=== PATIENT | female | born 1960 | race Caucasian/White ===

== ENCOUNTER 2019-10-20 12:56 | Inpatient (IN) | payer BC, MEDICAID ==
[2019-10-20 14:14] LABS: HEMOGLOBIN A1C 8.5 % (4.8-5.6)
[2019-10-20 14:41] LABS: CHLORIDE,CL 101 mEq/L (98-106); SODIUM,NA 136 mEq/L (136-145)
[2019-10-20] MEDS: Sodium Chloride 0.9% 1,000 ML IV SCH (16:55)
[2019-10-20] MEDS: Pantoprazole 40 MG Vial IVPUSH SCH (17:45)
[2019-10-20] MEDS ORDERED: traZODone 50 MG Tab PO SCH (20:00)
[2019-10-20] MEDS ORDERED: LITHIUM CARBONATE 300 MG PO SCH (21:00)
[2019-10-20] MEDS ORDERED: Enoxaparin 30 MG/0.3 ML Syringe SUBCUT SCH (21:00)
[2019-10-20] MEDS ORDERED: Lithium Carbonate 300 MG Cap PO ONE (22:15)
[2019-10-21] MEDS: Sodium Chloride 0.9% 1,000 ML IV SCH ×2 (02:31→14:19)
[2019-10-21] MEDS: Pantoprazole 40 MG Vial IVPUSH SCH ×2 (05:25→19:36)
[2019-10-21] MEDS ORDERED: LEVOTHYROXINE 175 MCG PO SCH (08:00)
[2019-10-21] MEDS ORDERED: GLIPIZIDE 10 MG PO SCH (08:00)
[2019-10-21] MEDS ORDERED: OXCARBAZEPINE 600 MG PO SCH (08:00)
[2019-10-21] MEDS ORDERED: OLOPATADINE 0.1% EYEBOTH SCH (08:00)
[2019-10-21] MEDS ORDERED: Iopamidol 755 Mg/ML 200 ML Bottle IV ONE (09:41)
[2019-10-21] MEDS ORDERED: Barium Sulfate Oral Susp 450 ML Bottle PO ONE ×2 (09:41)
[2019-10-21] MEDS: cefTRIAXone 1 GM Vial IVPUSH SCH (09:46)
--- NOTE | 2019-10-21 11:02 | PN ---
DATE: 10/21/2019 S: Yeimy was admitted yesterday for unsteadiness on her feet. She was weak, not eating, appeared clinically dehydrated, and at the time had a large lymph node in her left neck. CT scan did not show any obvious pathology, but she was unable to tolerate intake, and so we ultimately put her in for some IV fluids and workup. Her lab work confirmed a slight anemia at 10.8, which was lower than she had been in the past and macrocytic. Her renal functions were elevated with a creatinine of 1.8. She is down to 1.3 since she has been getting IV fluids, and she does have known gout, and her uric acid level was 9.5. Her sed rate was 98 with a CRP of 2.1. Urinalysis is borderline, and culture is pending. Concerned about this firm adenopathy in her left neck combined with her abdominal pain, which has been going on for a few weeks. Once we got a creatinine down this morning, we do plan on scanning her neck, chest, and abdomen. Otherwise, she is without complaints. O: VITAL SIGNS: Have been stable. She has had no fevers. Blood pressure is fine. Sats in the mid 90s on room air. GENERAL: Today, she is pleasant and cooperative. HEENT: Grossly benign. NECK: Supple. LUNGS: The cervical adenopathy in the left submandibular area remains firm and minimally tender. Lungs sounds are clear. CARDIAC: Tones are regular. ABDOMEN: Obese. She has tinea under both breasts. No real abdominal pain to palpation. EXTREMITIES: No significant peripheral edema. ASSESSMENT: 1. WEAKNESS WITH DEHYDRATION, IMPROVED. 2. UNSTEADY GAIT, QUESTIONABLE ETIOLOGY. 3. FIRM LEFT-SIDED CERVICAL ADENOPATHY. 4. BIPOLAR DISORDER. 5. ACUTE KIDNEY INJURY, IMPROVED. 6. HYPOTHYROIDISM. P: The patient will have scans today of neck, chest, abdomen, and pelvis. We are going to start her on Rocephin and get a urine culture. Her IV fluids will be discontinued after her CT scan is accomplished as her creatinine is back to stable at 1.3, which is her baseline. Still waiting on her verified doses of thyroid replacement as her free T4 on admit was low. [place] and Trileptal levels pending as well. MJP/MODL /[id number]
[2019-10-21] MEDS ORDERED: LEVOTHYROXINE SODIUM 225 MCG PO SCH (12:00)
[2019-10-21] MEDS: Simvastatin 40 MG Tab **OWN MED PO SCH (13:54)
[2019-10-21] MEDS: OXCARBAZEPINE 600 MG PO SCH (13:54)
[2019-10-21] MEDS: GLIPIZIDE 10 MG PO SCH (13:55)
[2019-10-21] MEDS: LITHIUM CARBONATE 300 MG PO SCH ×2 (13:55→19:29)
[2019-10-21] MEDS: [UNRECOGNIZED DRUG - REMARK] NASBOTH SCH ×2 (13:56→19:28)
[2019-10-21] MEDS: Nystatin Crm 30 GM Tube TOP SCH ×2 (13:56→17:58)
[2019-10-21] MEDS: [UNRECOGNIZED DRUG - REMARK] NASBOTH SCH ×2 (14:22→14:23)
[2019-10-21] MEDS: PULMICORT FLEXHALER INH SCH (14:22)
[2019-10-21] MEDS ORDERED: Enoxaparin 40 MG/0.4 ML Syringe SUBCUT SCH (17:53)
[2019-10-21] MEDS: Nystatin Crm 30 GM Tube TOP PRN (19:28)
[2019-10-21] MEDS: Enoxaparin 40 MG/0.4 ML Syringe SUBCUT SCH (19:34)
[2019-10-21] MEDS ORDERED: Lithium Carbonate 300 MG Cap PO SCH (20:00)
[2019-10-21] MEDS ORDERED: traZODone 50 MG Tab **OWN MED PO SCH (20:00)
[2019-10-22] MEDS ORDERED: Levothyroxine 25 MCG TAB PO SCH (07:00)
[2019-10-22] MEDS ORDERED: Levothyroxine 200 MCG TAB PO SCH (07:00)
[2019-10-22] MEDS: OXCARBAZEPINE 600 MG PO SCH (08:27)
[2019-10-22] MEDS: GLIPIZIDE 10 MG PO SCH (08:28)
[2019-10-22] MEDS: IRBESARTAN 300 MG PO SCH (08:28)
[2019-10-22] MEDS: Simvastatin 40 MG Tab **OWN MED PO SCH (08:29)
[2019-10-22] MEDS: Pantoprazole 40 MG Vial IVPUSH SCH ×2 (08:29→19:30)
[2019-10-22] MEDS: cefTRIAXone 1 GM Vial IVPUSH SCH (08:29)
[2019-10-22] MEDS: [UNRECOGNIZED DRUG - REMARK] NASBOTH SCH ×2 (08:31→19:27)
--- NOTE | 2019-10-22 09:48 | PN ---
DATE: 10/22/2019 S: Yeimy has been clinically doing well. Preliminary urine culture is negative and we did suspect a contaminated specimen. Her lithium level did come back this morning and she is toxic at 2.6. We have been holding it and she is already showing improvement in mentation and walking. CT scans yesterday did not show any signs of lymphoma in the chest, abdomen, and pelvis. 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 O: GENERAL: Today, she is much more clear, answers questions appropriately. HEENT: Grossly benign. NECK: Supple. Parotid lesion unchanged. LUNGS: Clear. CARDIAC: Tones are regular. EXTREMITIES: She has no peripheral edema. NEUROLOGIC: She has much better facial expression and cognition regarding conversation. Staff note that she is ambulating better with a walker. ASSESSMENT: 1. LITHIUM TOXICITY. 2. BIPOLAR DISORDER. 3. PAROTID GLAND TUMOR. 4. HYPOTHYROIDISM. 5. TYPE 2 DIABETES. 6. MORBID OBESITY. P: We will transfer to [facility] acute hospital. She is still a day or two away from safely being home and we will continue to have PT work with her closely. DARI/RYAN /[id number]
[2019-10-22] MEDS ORDERED: Lithium Carbonate 300 MG Cap PO SCH (09:55)
[2019-10-22] MEDS: OXcarbazepine 300 MG Tab PO SCH (19:34)
[2019-10-22] MEDS: traZODone 50 MG Tab PO SCH (19:34)
[2019-10-22] MEDS: Enoxaparin 40 MG/0.4 ML Syringe SUBCUT SCH (19:35)
[2019-10-22] MEDS: Acetaminophen 325 MG Tab PO PRN (21:11)
[2019-10-22] MEDS: Nystatin Crm 30 GM Tube TOP PRN (21:12)
[2019-10-23] MEDS: Acetaminophen 325 MG Tab PO PRN (03:02)
[2019-10-23] MEDS: Levothyroxine 150 MCG Tab PO SCH (06:41)
[2019-10-23] MEDS: Levothyroxine 100 MCG Tab PO SCH (06:41)
[2019-10-23] MEDS: [UNRECOGNIZED DRUG - REMARK] NASBOTH SCH ×2 (07:33→19:29)
[2019-10-23] MEDS: glipiZIDE 5 MG Tab.ER PO SCH (07:34)
[2019-10-23] MEDS: IRBESARTAN 300 MG PO SCH (07:36)
[2019-10-23] MEDS: OXcarbazepine 300 MG Tab PO SCH ×2 (07:36→19:27)
[2019-10-23] MEDS: Pantoprazole 40 MG Vial IVPUSH SCH ×2 (07:36→19:29)
[2019-10-23] MEDS: cefTRIAXone 1 GM Vial IVPUSH SCH (08:18)
[2019-10-23] MEDS ORDERED: LITHIUM CARBONATE 300 MG PO SCH (10:45)
[2019-10-23] MEDS: LITHIUM CARBONATE 300 MG PO SCH (11:10)
--- NOTE | 2019-10-23 12:16 | PN ---
DATE: 10/23/2019 S: eYimy had a good day yesterday. She has been ambulating much better since she has had her lithium on hold. She also feels much more clear. She is vocalizing much better. Her level was 2.6; it was drawn randomly, however. Her blood pressures and vitals have otherwise been stable. She denies any new concerns. Her urinalysis shows contamination and no pathologic organisms. O: GENERAL: Today shows her to be pleasant and cooperative and in no distress. HEENT: Remains unchanged. The parotid tumor remains firm and nontender. NECK: Otherwise supple. LUNGS: Clear. CARDIAC: Tones are regular. ABDOMEN: Soft, obese, and nontender. EXTREMITIES: No peripheral edema. No cellulitis changes. NEUROLOGIC: She looks stable. ASSESSMENT: 1. LITHIUM TOXICITY WITH ASSOCIATED ATAXIA AND CONFUSION, IMPROVED. 2. BIPOLAR DISORDER. 3. PAROTID GLAND TUMOR. 4. HYPOTHYROIDISM. 5. TYPE 2 DIABETES. 6. MORBID OBESITY. P: The patient did run a few low-grade temperatures up to I believe 100.4 yesterday. Her lab work today looks fine. Her hemoglobin is down to 10. We will get B12, folate, and a peripheral smear on her. The patient clinically looks better and I suspect will be ready for home by tomorrow morning. We will start her back on a lower dose of lithium at 150 b.i.d. and I will get a level tomorrow morning prior to her dose, which should be optimal time for checking. She will need frequent monitoring of this as an outpatient until we achieve a steady state on her. Rocephin is stopped as her urine culture is negative. DARI/RYAN /[id number]
[2019-10-23] MEDS: Nystatin Crm 30 GM Tube TOP PRN ×2 (16:43→19:33)
[2019-10-23] MEDS: traZODone 50 MG Tab PO SCH (19:27)
[2019-10-23] MEDS: Enoxaparin 40 MG/0.4 ML Syringe SUBCUT SCH (19:29)
[2019-10-23] MEDS ORDERED: Simvastatin 40 MG Tab PO SCH (20:00)
[2019-10-24] MEDS: Levothyroxine 150 MCG Tab PO SCH (06:14)
[2019-10-24] MEDS: Levothyroxine 100 MCG Tab PO SCH (06:15)
[2019-10-24] MEDS: Nystatin Crm 30 GM Tube TOP PRN (07:32)
[2019-10-24] MEDS: [UNRECOGNIZED DRUG - REMARK] NASBOTH SCH (07:33)
[2019-10-24] MEDS: OXcarbazepine 300 MG Tab PO SCH (07:34)
[2019-10-24] MEDS: glipiZIDE 5 MG Tab.ER PO SCH (07:34)
[2019-10-24] MEDS: IRBESARTAN 300 MG PO SCH (07:35)
[2019-10-24] MEDS: Pantoprazole 40 MG Vial IVPUSH SCH (07:36)
[2019-10-24] MEDS: LITHIUM CARBONATE 300 MG PO SCH (08:05)
[2019-10-24 09:03] VITALS: BP 120/69; PULSE 70
--- NOTE | 2019-10-24 11:15 | DISCH ---
ADMISSION DIAGNOSES: 1. Unsteady gait. 2. Cervical adenopathy. 3. Abdominal pain. 4. Anemia. 5. Bipolar disorder. 6. Type 2 diabetes. 7. Elevated uric acid. 8. Hypertension. 9. Hypothyroidism. DISCHARGE DIAGNOSIS: 1. LITHIUM TOXICITY. 2. BIPOLAR DISORDER. 3. PAROTID GLAND TUMOR. 4. HYPOTHYROIDISM. 5. TYPE 2 DIABETES. 6. MORBID OBESITY. 7. MEDICATION NONCOMPLIANCE. HISTORY: The patient was seen in my office for weakness and unsteady gait. said over the last 2 weeks, she has just been a little bit more lethargic and having a hard time walking. She does take lithium and Trileptal for her bipolar disorder, which is managed by Psychiatry in [place]. She is unsure at that time of her last lithium level. Her evaluation showed her to have a very firm submandibular lymph node on her left side. She was ataxic and a little lethargic with some difficulty with word finding. We ultimately admitted her for evaluation to the hospital. HOSPITAL COURSE: The patient was admitted. Her lithium was held. Ultimately, level showed her to be toxic at 2.6. We have started her back on a lower dose from 300 b.i.d. to 300 once a day, and we will continue to monitor that and get a steady state as an outpatient. Because of her lymph node in her neck and the fact that she was having abdominal pain, we are concerned about lymphoma. CT of the neck, chest, abdomen, and pelvis confirmed a parotid gland tumor in her left face, but no other worrisome adenopathy. She will have ENT followup in the future. I did put her on IV Protonix because of her abdominal pain, but she has not really had any since admission. With the cessation of her lithium, her balance and walking have returned to normal. She is much more alert, oriented, and doing well. For the most part, she has had a nice steady improvement throughout her entire stay. She was hypothyroid on admission. Her dose has been increased, that will also be followed up as an outpatient. She has not been taking her allopurinol. Her uric acid level was 9.6. We are going to start her back on 200 mg of that a day and that will be followed as an outpatient. ENT referral will be managed through my office in the clinic. At this time, she will go home on a lower dose of lithium, a slightly higher dose of her levothyroxine as well as her allopurinol. The patient will have home health for medication monitoring and compliance, and we will see her back in my office in the next 3 or 4 days. COMPLICATIONS: During her stay were none. CONSULTATIONS: PT. PROCEDURES: CT of the neck, chest, abdomen, pelvis. DISPOSITION: Discharged home with home health cares. DARI/RYAN /[id number]
== END 2019-10-24 11:00 | disposition home health service (06) | DRG 58 ==
LOC: CC.FCMC 12:56 → CC.MS 12:56 → UNDOADMOB 14:57 → CC.MS 14:57 → OBSVTOIN 10-22 09:04
PROVIDERS: ADMIT Family Medicine; ATTEND Family Medicine
DX: R26.9 Unspecified abnormalities of gait and mobility (principal); E66.01 Morbid (severe) obesity due to excess calories; E03.9 Hypothyroidism, unspecified; N17.9 Acute kidney failure, unspecified; T43.595A Adverse effect of other antipsychotics and neuroleptics, initial encounter; D64.9 Anemia, unspecified; D49.0 Neoplasm of unspecified behavior of digestive system; E11.9 Type 2 diabetes mellitus without complications; E78.5 Hyperlipidemia, unspecified; I10 Essential (primary) hypertension; R59.0 Localized enlarged lymph nodes; E79.0 Hyperuricemia without signs of inflammatory arthritis and tophaceous disease; E86.0 Dehydration; Z91.14 Patient's other noncompliance with medication regimen; Z68.36 Body mass index [BMI] 36.0-36.9, adult; Z79.899 Other long term (current) drug therapy
CPT/HCPCS: 36415; 70450; 70491; 71260; 74177; 80048; 80053; 80178; 80183; 81001; 82150; 82550; 82607; 82746; 82962; 83036; 84439; 84443; 84550; 85025; 85046; 85651; 86140; 87086; 96361; 96372; 96374; 96375; 96376; 97110-GP; 97161-GP; A9270-GY; C9113; G0378; J0696; J1650; J7030; Q9967

== ENCOUNTER 2020-09-18 11:13 | Emergency (ER) | payer BC, MEDICAID ==
[2020-09-18 11:29] VITALS: PULSE 101
[2020-09-18 11:56] VITALS: BP 135/86
[2020-09-18] MEDS ORDERED: Lactated Ringers 1,000 ML IV ONE (12:01)
--- NOTE | 2020-09-18 12:03 | EDM.PDOC ---
ED HPI GENERAL MEDICAL PROBLEM - General Chief Complaint: General Stated Complaint: UTI Time Seen by Provider: 09/18/20 11:55 Source of Information: Reports: Patient, Family History Limitations: Reports: No Limitations - History of Present Illness INITIAL COMMENTS - FREE TEXT/NARRATIVE: Yeimy is a 59 yo female who presents to the ED with c/o "not feeling well." She reports that for about the past week, she has just felt very tired and uninterested in activities. She does not offer any additional complaints. Was seen by Dr. Tinoco earlier this week and thought to have a UTI. Did receive injection in clinic but reports were later told culture was normal. She reports she did get her Moderna Covid vaccination last week and was thought to maybe be cause of symptoms. She denies any pain. Denies any dizziness, headache, N/V/D, abdominal pain, URI symptoms, cough, urinary symptoms. Has not been eating and drinking much. Onset: Gradual, Unknown/Unsure Associated Symptoms: Reports: No Other Symptoms, Malaise - Related Data Allergies Allergy/AdvReac Type Severity Reaction Status Date / Time No Known Allergies Allergy Verified 09/18/20 11:34 Home Meds: Home Meds Budesonide [Pulmicort Flexhaler] 2 inh INH BID 03/28/16 [History] Budesonide [Rhinocort Allergy] 2 inh NASBOTH BID 03/28/16 [History] Desloratadine [Clarinex] 5 mg PO DAILY 03/28/16 [History] OXcarbazepine [Trileptal] 600 mg PO BID 03/28/16 [History] Simvastatin [Zocor] 40 mg PO DAILY 03/28/16 [History] glipiZIDE [Glipizide ER] 20 mg PO DAILY 03/28/16 [History] traZODone HCl [Trazodone HCl] 50 mg PO BEDTIME 03/28/16 [History] Irbesartan 300 mg PO DAILY 10/21/19 [History] Levothyroxine 200 mcg PO DAILY 10/21/19 [History] Oxybutynin Chloride [Oxybutynin Chloride ER] 5 mg PO DAILY 10/21/19 [History] Levothyroxine Sodium [Levo-T] 50 mcg PO DAILY #30 tablet 10/24/19 [Rx] Nystatin [Nystatin Crm] 1 gm TOP TID PRN #90 tube 10/24/19 [Rx] allopurinoL [Zyloprim] 200 mg PO DAILY #60 tablet 10/24/19 [Rx] Paliperidone [Paliperidone ER] 1 tab PO DAILY 09/18/20 [History] Past Medical History Cardiovascular History: Reports: High Cholesterol, Hypertension Respiratory History: Reports: Asthma Psychiatric History: Reports: Bipolar Endocrine/Metabolic History: Reports: Diabetes, Type II, Hypothyroidism Social & Family History - Family History Family Medical History: Unobtainable - Tobacco Use Tobacco Use Status *Q: Never Tobacco User - Caffeine Use Caffeine Use: Reports: Soda - Recreational Drug Use Recreational Drug Use: No ED ROS GENERAL - Review of Systems Review Of Systems: Comprehensive ROS is negative, except as noted in HPI. ED EXAM, GENERAL - Physical Exam Exam: See Below Exam Limited By: No Limitations General Appearance: Alert, WD/WN, No Apparent Distress Eye Exam: Bilateral Eye: EOMI, PERRL Throat/Mouth: Other (dry mucous membranes) Head: Atraumatic, Normocephalic Neck: Normal Inspection, Supple, Non-Tender, Full Range of Motion Respiratory/Chest: No Respiratory Distress, Lungs Clear, Normal Breath Sounds, No Accessory Muscle Use, Chest Non-Tender Cardiovascular: Normal Peripheral Pulses, Regular Rate, Rhythm, No Edema, No Gallop, No JVD, No Murmur, No Rub GI/Abdominal: Normal Bowel Sounds, Soft, Non-Tender, No Organomegaly, No Distention, No Abnormal Bruit, No Mass Extremities: Normal Inspection, Normal Range of Motion, Non-Tender, Normal Capillary Refill, No Pedal Edema Neurological: Alert, Oriented, CN II-XII Intact, Normal Cognition, Normal Gait, Normal Reflexes, No Motor/Sensory Deficits Psychiatric: Depressed Mood, Flat Affect Skin Exam: Warm, Dry, Intact, Normal Color, No Rash Course - Vital Signs Last Recorded V/S: Last Vital Signs Temp 97.9 F 09/18/20 11:29 Pulse 101 H 09/18/20 11:29 Resp 18 09/18/20 11:29 BP 135/86 09/18/20 11:50 Pulse Ox 95 09/18/20 11:29 - Orders/Labs/Meds Labs: Laboratory Tests 09/18/20 09/18/20 09/18/20 Range/Units 11:24 11:24 11:24 WBC 9.0 (5.0-10.0) 10^3/uL RBC 3.85 L (4.00-5.50) 10^6/uL Hgb 12.1 (12.0-16.0) g/dL Hct 36.7 L (37.0-47.0) % MCV 95.3 H (82.0-94.0) fL MCH 31.4 (27.0-32.0) pg MCHC 33.0 (33.0-38.0) g/dL RDW Coeff of Rosy 12.4 (11.0-15.0) % Plt Count 220 (150-400) 10^3/uL Neut % (Auto) 74.0 (35-85) % Lymph % (Auto) 17.6 (10-55) % [place] % (Auto) 6.5 (0-16) % Eos % (Auto) 1.7 (0-5) % Baso % (Auto) 0.2 (0-3) % Neut # (Auto) 6.68 (1.80-7.00) 10^3/uL Lymph # (Auto) 1.59 (1.00-4.80) 10^3/uL [place] # (Auto) 0.59 (0.00-0.80) 10^3/uL Eos # (Auto) 0.15 (0.00-0.45) 10^3/uL Baso # (Auto) 0.02 10^3/uL Sodium 141 (136-145) mEq/L Potassium 3.7 (3.5-5.0) mEq/L Chloride 101 (98-106) mEq/L Carbon Dioxide 28 (21-32) mmol/L BUN 27 H (7-18) mg/dL Creatinine 1.5 H (0.6-1.0) mg/dL Est Cr Clr Drug Dosing 40.24 mL/min Estimated GFR (MDRD) 36 L (>=60) mL/min Glucose 218 H D (75-99) mg/dL Calcium 9.1 (8.4-10.1) mg/dL Total Bilirubin 0.3 (0.0-1.0) mg/dL AST 16 (15-37) U/L ALT 31 (12-78) U/L Alkaline Phosphatase 142 H (46-116) U/L C-Reactive Protein 0.5 (0.2-0.8) mg/dL Total Protein 7.8 (6.4-8.2) g/dL Albumin 3.4 (3.4-5.0) g/dL Urine Color Yellow (YELLOW) Urine Appearance Clear (CLEAR) Urine pH 5.5 (4.5-8.0) Ur Specific [place] 1.010 (1.003-1.020) Urine Protein 30 H (NEGATIVE) mg/dL Urine Glucose (UA) Negative (NEGATIVE) mg/dL Urine Ketones Negative (NEGATIVE) mg/dL Urine Occult Blood Negative (NEGATIVE) Urine Nitrite Negative (NEGATIVE) Urine Bilirubin Negative (NEGATIVE) Urine Urobilinogen 0.2 (0.2-1.0) EU/dL Ur Leukocyte Esterase Negative (NEGATIVE) Urine RBC Not seen (0-5) /HPF Urine WBC Not seen (0-5) /HPF Meds: Medications Discontinued Medications Generic Name Dose Route Start Last Admin Trade Name Freq PRN Reason Stop Dose Admin Lactated Ringer's 1,000 mls @ 999 mls/hr 09/18/20 12:01 09/18/20 12:12 Ringers, Lactated IV 09/18/20 13:01 999 mls/hr .BOLUS ONE Administration - Re-Assessments/Exams Free Text/Narrative Re-Assessment/Exam: 09/18/20 12:06 IVF given as patient appears dry, has not been drinking, has protein in urine, BUn up to 27, creatinine up to 1.5. Departure - Departure Time of Disposition: 13:09 Disposition: Home, Self-Care 01 Condition: Good Clinical Impression: Fatigue after COVID-19 vaccination, Dehydration - Discharge Information *PRESCRIPTION DRUG MONITORING PROGRAM REVIEWED*: Not Applicable *COPY OF PRESCRIPTION DRUG MONITORING REPORT IN PATIENT BEHZAD: Not Applicable Instructions: Fatigue Referrals: Kt Tinoco MD [Primary Care Provider] - Forms: ED Department Discharge Sepsis Event Note (ED) - Evaluation Sepsis Screening Result: No Definite Risk - Focused Exam Vital Signs: Vital Signs Temp Pulse Resp BP Pulse Ox 09/18/20 11:50 135/86 09/18/20 11:29 97.9 F 101 H 18 158/93 H 95 09/18/20 11:28 97.9 F 101 H 18 158/93 H 95 - Problem List & Annotations (1) Fatigue after COVID-19 vaccination SNOMED Code(s): 59388931 Code(s): R53.83 - OTHER FATIGUE; T50.B95A - ADVERSE EFFECT OF OTHER VIRAL VACCINES, INITIAL ENCOUNTER Status: Acute Current Visit: Yes (2) Dehydration SNOMED Code(s): 85998088 Code(s): E86.0 - DEHYDRATION Status: Acute Current Visit: Yes - Assessment/Plan Assessment:: Fatigue after Covid 19 Vaccination Dehydration Plan: 59 yo female presents with c/o fatigue for approximately the past week. Did receive her Covid vaccination last week and has been feeling this way since. Does appear dry. Has not been eating/drinking much. Patient was given 1 L LR fluid bolus. Recommend continued rest and hydration. Follow up with PCP next week if symptoms persist. Return to ED for emergent needs.
== END 2020-09-18 13:40 | disposition home or self-care (01) ==
LOC: SUPCPDRO 11:13 → CC.ED 11:13
DX: E86.0 Dehydration (principal); T88.1XXA Other complications following immunization, not elsewhere classified, initial encounter; E78.00 Pure hypercholesterolemia, unspecified; I10 Essential (primary) hypertension; J45.909 Unspecified asthma, uncomplicated; E11.9 Type 2 diabetes mellitus without complications; E03.9 Hypothyroidism, unspecified; Z79.899 Other long term (current) drug therapy; Z79.84 Long term (current) use of oral hypoglycemic drugs
CPT/HCPCS: 36415; 80053; 81001; 85025; 86140; 99283; J7120

== ENCOUNTER 2020-10-23 13:13 | Emergency (ER) | payer BC, MEDICAID ==
[2020-10-23 13:24] VITALS: BP 114/96; PULSE 110
[2020-10-23 13:53] LABS: CHLORIDE,CL 100 mEq/L (98-106); SODIUM,NA 140 mEq/L (136-145)
--- NOTE | 2020-10-23 13:54 | EDM.PDOC ---
ED HPI GENERAL MEDICAL PROBLEM - General Chief Complaint: General Stated Complaint: "dont feel good" Time Seen by Provider: 10/23/20 13:35 Source of Information: Reports: Patient, Family History Limitations: Reports: No Limitations - History of Present Illness INITIAL COMMENTS - FREE TEXT/NARRATIVE: Yeimy is a 59 year old female who presents to ER with "just not feeling good". H as no specific complaints. Feels tired in am, has less ambition than normal. relates was concerned today as she didn't want to take her meds or get dressed today. States has more difficulty with this in the mornings, seems to perk up some during the day. Had her levothyroxine dose changed recently, actually had it reduced as her TSH was 0.00. She was feeling more sedated prior to that, he feels she is more alert although she was having issues with hyperthyroidism. Patient denies chest pain, shortness of breath, nausea or vomiting. Cannot explain why she doesn't want to take her meds, "just don't feel like it". Has bipolar disease, has been seeing a psychiatrist for years due to that. Had med changes several months ago as was "toxic from one of her meds". He did reach out to them today and were advised to come to [place] if concerned but chose to come here for evaluation. She feels her bipolar is in good control. Has been eating well. Onset: Gradual Duration: Week(s):, Waxing/Waning Location: Reports: Generalized Associated Symptoms: Reports: Weakness. Denies: Confusion, Chest Pain, Cough, Fever/Chills, Loss of Appetite, Nausea/Vomiting, Shortness of Breath - Related Data Allergies Allergy/AdvReac Type Severity Reaction Status Date / Time No Known Allergies Allergy Verified 10/23/20 13:13 Home Meds: Home Meds Budesonide [Pulmicort Flexhaler] 2 inh INH BID 03/28/16 [History] Budesonide [Rhinocort Allergy] 2 inh NASBOTH BID 03/28/16 [History] Desloratadine [Clarinex] 5 mg PO DAILY 03/28/16 [History] OXcarbazepine [Trileptal] 600 mg PO BID 03/28/16 [History] Simvastatin [Zocor] 40 mg PO DAILY 03/28/16 [History] glipiZIDE [Glipizide ER] 20 mg PO DAILY 03/28/16 [History] traZODone HCl [Trazodone HCl] 50 mg PO BEDTIME 03/28/16 [History] Irbesartan 300 mg PO DAILY 10/21/19 [History] Levothyroxine 200 mcg PO DAILY 10/21/19 [History] Oxybutynin Chloride [Oxybutynin Chloride ER] 5 mg PO DAILY 10/21/19 [History] Nystatin [Nystatin Crm] 1 gm TOP TID PRN #90 tube 10/24/19 [Rx] allopurinoL [Zyloprim] 200 mg PO DAILY #60 tablet 10/24/19 [Rx] Paliperidone [Paliperidone ER] 1 tab PO DAILY 09/18/20 [History] Liraglutide [Victoza 2-Wily] 1.2 mg SUBCUT DAILY 10/23/20 [History] Past Medical History Cardiovascular History: Reports: High Cholesterol, Hypertension Respiratory History: Reports: Asthma Psychiatric History: Reports: Bipolar Endocrine/Metabolic History: Reports: Diabetes, Type II, Hyperthyroidism, Hypothyroidism Other Endocrine/Metabolic History: pt "unsure" if she has hypo or hyperthyroidism Social & Family History - Family History Family Medical History: Unobtainable - Tobacco Use Tobacco Use Status *Q: Never Tobacco User - Caffeine Use Caffeine Use: Reports: Soda - Recreational Drug Use Recreational Drug Use: No ED ROS GENERAL - Review of Systems Review Of Systems: See Below Constitutional: Reports: Malaise, Weakness, Fatigue. Denies: Fever, Chills, Decreased Appetite HEENT: Denies: Ear Pain, Sinus Problem, Throat Pain, Vertigo Respiratory: Denies: Shortness of Breath, Cough Cardiovascular: Denies: Chest Pain, Edema, Lightheadedness Endocrine: Reports: Fatigue GI/Abdominal: Denies: Abdominal Pain, Constipation, Diarrhea, Nausea, Vomiting : Reports: No Symptoms Musculoskeletal: Reports: No Symptoms Skin: Reports: No Symptoms Neurological: Reports: Weakness Psychiatric: Reports: Anxiety, Depression. Denies: Suicidal Ideation ED EXAM, GENERAL - Physical Exam Exam: See Below Exam Limited By: No Limitations General Appearance: Alert, WD/WN, No Apparent Distress Ears: Normal External Exam, Normal TMs Nose: Normal Inspection, Normal Mucosa, No Blood Throat/Mouth: Normal Inspection, Normal Oropharynx Head: Normocephalic Neck: Normal Inspection, Supple, Non-Tender Respiratory/Chest: No Respiratory Distress, Lungs Clear, Normal Breath Sounds Cardiovascular: Regular Rate, Rhythm GI/Abdominal: Normal Bowel Sounds, Soft, Non-Tender Extremities: Normal Inspection, No Pedal Edema Neurological: Alert, Oriented Skin Exam: Warm, Dry Course - Vital Signs Last Recorded V/S: Last Vital Signs Temp 97.3 F 10/23/20 13:13 Pulse 110 H 10/23/20 13:13 Resp 16 10/23/20 13:13 BP 114/96 H 10/23/20 13:13 Pulse Ox 95 10/23/20 13:13 - Orders/Labs/Meds Orders: Active Orders 24 hr Category Date Time Status EKG Documentation Completion [RC] STAT Care 10/23/20 13:21 Active Labs: Laboratory Tests 10/23/20 10/23/20 10/23/20 Range/Units 13:21 13:21 13:21 WBC 9.8 (5.0-10.0) 10^3/uL RBC 4.01 (4.00-5.50) 10^6/uL Hgb 12.6 (12.0-16.0) g/dL Hct 37.7 (37.0-47.0) % MCV 94.0 (82.0-94.0) fL MCH 31.4 (27.0-32.0) pg MCHC 33.4 (33.0-38.0) g/dL RDW Coeff of Rosy 12.6 (11.0-15.0) % Plt Count 250 (150-400) 10^3/uL Neut % (Auto) 71.5 (35-85) % Lymph % (Auto) 19.0 (10-55) % [place] % (Auto) 6.6 (0-16) % Eos % (Auto) 2.6 (0-5) % Baso % (Auto) 0.3 (0-3) % Neut # (Auto) 7.00 (1.80-7.00) 10^3/uL Lymph # (Auto) 1.86 (1.00-4.80) 10^3/uL [place] # (Auto) 0.65 (0.00-0.80) 10^3/uL Eos # (Auto) 0.25 (0.00-0.45) 10^3/uL Baso # (Auto) 0.03 10^3/uL Sodium 140 (136-145) mEq/L Potassium 3.8 (3.5-5.0) mEq/L Chloride 100 (98-106) mEq/L Carbon Dioxide 28 (21-32) mmol/L BUN 25 H (7-18) mg/dL Creatinine 1.4 H (0.6-1.0) mg/dL Est Cr Clr Drug Dosing 43.11 mL/min Estimated GFR (MDRD) 39 L (>=60) mL/min Glucose 234 H (75-99) mg/dL Calcium 9.2 (8.4-10.1) mg/dL Magnesium 1.7 L (1.8-2.4) mg/dL Total Bilirubin 0.3 (0.0-1.0) mg/dL AST 14 L (15-37) U/L ALT 25 (12-78) U/L Alkaline Phosphatase 142 H (46-116) U/L Troponin I < 0.017 (0.00-0.06) ng/mL Total Protein 7.6 (6.4-8.2) g/dL Albumin 3.2 L (3.4-5.0) g/dL Urine Color Yellow (YELLOW) Urine Appearance Clear (CLEAR) Urine pH 6.0 (4.5-8.0) Ur Specific [place] 1.010 (1.003-1.020) Urine Protein 30 H (NEGATIVE) mg/dL Urine Glucose (UA) Negative (NEGATIVE) mg/dL Urine Ketones Negative (NEGATIVE) mg/dL Urine Occult Blood Negative (NEGATIVE) Urine Nitrite Negative (NEGATIVE) Urine Bilirubin Negative (NEGATIVE) Urine Urobilinogen 0.2 (0.2-1.0) EU/dL Ur Leukocyte Esterase Trace H (NEGATIVE) Urine RBC Not seen (0-5) /HPF Urine WBC 0-5 (0-5) /HPF - Re-Assessments/Exams Free Text/Narrative Re-Assessment/Exam: 10/23/20 14:00 Labs are essentially all stable. Magnesium slightly low at 1.7, others equal in comparison to past labs. Discussed these with patient and . Advised to reach out to psychiatrist. Follow up with Dr. Tinoco as previously scheduled for recheck. Departure - Departure Time of Disposition: 14:01 Disposition: Home, Self-Care 01 Condition: Fair Clinical Impression: Hypomagnesemia, Bipolar 1 disorder - Discharge Information *PRESCRIPTION DRUG MONITORING PROGRAM REVIEWED*: No *COPY OF PRESCRIPTION DRUG MONITORING REPORT IN PATIENT BEHZAD: No Instructions: Managing Bipolar Disorder, Hypomagnesemia Forms: ED Department Discharge Additional Instructions: 1. Rest 2. Push fluids 3. Magnesium 250 mg daily 4. If continues to have issues with compliance with meds, sleeping concerns, or changes in mood, may need to reach out to psychiatrist 5. Follow up with Dr. Tinoco as scheduled Sepsis Event Note (ED) - Evaluation Sepsis Screening Result: No Definite Risk - Focused Exam Vital Signs: Vital Signs Temp Pulse Resp BP Pulse Ox 10/23/20 13:13 97.3 F 110 H 16 114/96 H 95 - My Orders Last 24 Hours: My Active Orders 10/23/20 13:21 EKG Documentation Completion [RC] STAT - Assessment/Plan Last 24 Hours: My Active Orders 10/23/20 13:21 EKG Documentation Completion [RC] STAT
== END 2020-10-23 14:09 | disposition home or self-care (01) ==
LOC: CC.ED 13:13
DX: E83.42 Hypomagnesemia (principal); F31.9 Bipolar disorder, unspecified; E78.00 Pure hypercholesterolemia, unspecified; I10 Essential (primary) hypertension; E11.9 Type 2 diabetes mellitus without complications; E03.9 Hypothyroidism, unspecified; Z79.899 Other long term (current) drug therapy; Z79.84 Long term (current) use of oral hypoglycemic drugs
CPT/HCPCS: 36415; 80053; 81001; 83735; 84484; 85025; 93005; 99284-25

== ENCOUNTER 2021-10-10 19:55 | Inpatient (IN) | payer BC, MEDICAID ==
[2021-10-10] MEDS ORDERED: Sodium Chloride 0.9% 1,000 ML IV ONE (20:14)
[2021-10-10] MEDS ORDERED: Magnesium Sulfate/Water 2 GM in Premix Bag 1 BAG IV ONE (22:13)
[2021-10-10] MEDS ORDERED: Sodium Chloride 0.9% 1,000 ML IV SCH (22:15)
[2021-10-10] MEDS ORDERED: Acetaminophen 500 MG Tab PO PRN (22:28)
[2021-10-10] MEDS ORDERED: cefTRIAXone 1 GM Vial IVPUSH SCH (22:30)
[2021-10-11 07:40] LABS: HEMOGLOBIN A1C 8.8 % (4.8-5.6)
[2021-10-11] MEDS ORDERED: Nystatin Topical Powder 15 GM Bottle TOP SCH (08:00)
[2021-10-11] MEDS ORDERED: Multivitamins with Minerals and Iron Liquid ML 240 ML Bottle PO SCH (08:00)
[2021-10-11] MEDS ORDERED: Multivitamins with Iron/Calcium/Folic Acid/Minerals Tab PO SCH (08:30)
[2021-10-11] MEDS ORDERED: Meclizine 12.5 MG Tab PO ONE (10:30)
[2021-10-11] MEDS ORDERED: Levothyroxine 112 MCG Tab PO SCH (10:30)
[2021-10-11] MEDS ORDERED: glipiZIDE 5 MG Tab.ER PO SCH (10:45)
[2021-10-11] MEDS ORDERED: OXcarbazepine 300 MG Tab PO SCH (10:45)
[2021-10-11] MEDS ORDERED: metFORMIN 500 MG Tab PO SCH (12:00)
[2021-10-11] MEDS ORDERED: PALIPERIDONE 1.5 MG PO SCH (12:15)
[2021-10-11 13:40] VITALS: BP 107/60; PULSE 86
== END 2021-10-11 15:50 | disposition home or self-care (01) | DRG 426 ==
LOC: CC.ED 19:55 → UNDOADMOB 21:00 → CC.MS 21:00 → OBSVTOIN 22:08
PROVIDERS: ADMIT Nurse Practitioner Family; ATTEND Nurse Practitioner Family
DX: E87.1 Hypo-osmolality and hyponatremia (principal); E83.42 Hypomagnesemia; D72.829 Elevated white blood cell count, unspecified; R26.9 Unspecified abnormalities of gait and mobility; F31.9 Bipolar disorder, unspecified; E03.9 Hypothyroidism, unspecified; E66.9 Obesity, unspecified; E78.00 Pure hypercholesterolemia, unspecified; I10 Essential (primary) hypertension; J45.909 Unspecified asthma, uncomplicated; E11.9 Type 2 diabetes mellitus without complications; Z79.899 Other long term (current) drug therapy; Z79.890 Hormone replacement therapy; Z68.36 Body mass index [BMI] 36.0-36.9, adult
CPT/HCPCS: 36415; 70450; 71046; 80053; 81001; 82947; 83036; 83735; 84439; 84443; 85025; 87086; 99223; 99238; 99285-25; A9270-GY; J0696; J3475; J7030